=== PATIENT | female | born 1955 | race Caucasian/White ===

== ENCOUNTER 2017-04-25 21:53 | Emergency (ER) | payer MEDICAID ==
[~2017-04-25] VITALS: Ht 162.6 cm; Wt 71.5 kg
[~2017-04-25 21:53] MED LIST: AMIT10TA6 PO; BACDS PO; CHOL5000; CLIN150C2 PO; SERT20OR PO; ZOLP6.2523 PO
[2017-04-26] MEDS ORDERED: proparacaine 0.5% ophthalmic drops 15ml LEFTEYE ONE (00:45)
[2017-04-26] MEDS ORDERED: fluoroscein sod 10% (100mg/ml) 5ml vial IJ ONE (01:15)
[2017-04-26] MEDS ORDERED: benoxinate/fluorescein ophth drops 5ml bottle LEFTEYE ONE (01:20)
[2017-04-26 01:47] VITALS: BP 130/82
== END 2017-04-26 01:48 | disposition home or self-care (01) ==
LOC: ER 21:54
DX: H10.212 Acute toxic conjunctivitis, left eye (principal); Z56.0 Unemployment, unspecified; Z79.899 Other long term (current) drug therapy
CPT/HCPCS: 99283

== ENCOUNTER 2018-05-15 07:26 | Day surgery (SDC) | payer MEDICAID ==
[2018-05-15] VITALS (10 sets, daily range): BP systolic 114–137; BP diastolic 69–77
[~2018-05-15] VITALS: Ht 160 cm; Wt 75.7 kg
[~2018-05-15 07:26] MED LIST changes: -AMIT10TA6 PO; -BACDS PO; +CHOL100046 PO; -CHOL5000; -CLIN150C2 PO; +LEVO150T8 PO; +LORA-512 PO; -SERT20OR PO; -ZOLP6.2523 PO; +famotidine 20mg tablet PO ONE; +ringers solution, lacted 1,000 ML IV SCH
[2018-05-15] MEDS ORDERED: cefazolin/dext.iso 2gm/100 ML IV ONE (08:40)
[2018-05-15 08:53] LABS: BASOPHILS % (AUTO) 0.7 % (0-1); EOSINOPHILS # (AUTO) 0.2 X10'3 (0-0.9); EOSINOPHILS % (AUTO) 3.4 % (0-6); HEMATOCRIT 38.1 % (35.0-45.0); HEMOGLOBIN 12.9 g/dl (12.0-16.0); LYMPHOCYTES # (AUTO) 2.4 X10'3 (1.1-4.8); LYMPHOCYTES % (AUTO) 41.7 % (21-51); MEAN CORPUSCULAR HEMOGLOBIN 29.8 PG (27.0-31.0); MEAN CORPUSCULAR HGB CONC 33.9 g/dL (33.0-36.5); MEAN CORPUSCULAR VOLUME 87.8 FL (78-98); MEAN PLATELET VOLUME 9.2 FL (7.4-10.4); MONOCYTES # (AUTO) 0.7 X10'3 (0-0.9); MONOCYTES % (AUTO) 11.7 % (2-12); NEUTROPHILS # (AUTO) 2.4 X10'3 (1.8-7.7); NEUTROPHILS % (AUTO) 42.5 % (42-75); PLATELET COUNT 185 X10'3 (140-440); RED BLOOD COUNT 4.34 X10'6 (4.20-5.60); RED CELL DISTRIBUTION WIDTH 13.2 % (11.5-14.5); WHITE BLOOD COUNT 5.7 X10'3 (4.5-11.0)
[2018-05-15 09:06] LABS: ALANINE AMINOTRANSFERASE 28 U/L (12-78); ALBUMIN 3.8 G/DL (3.4-5.0); ALBUMIN/GLOBULIN RATIO 1.2 (1.1-1.5); ALKALINE PHOSPHATASE 78 IU/L (46-116); ANION GAP 8 (8-16); ASPARTATE AMINO TRANSFERASE 23 U/L (10-37); BILIRUBIN,TOTAL 0.4 MG/DL (0.1-1.0); BLOOD UREA NITROGEN 15 MG/DL (7-18); BUN/CREATININE RATIO 20.5 (6.6-38.0); CALCIUM 9.9 MG/DL (8.5-10.1); CHLORIDE 105 MMOL/L (99-107); CREATININE 0.73 MG/DL (0.40-0.90); GLUCOSE 109 MG/DL (70-104); SODIUM 141 MMOL/L (135-145); eGFR 81 ML/MIN
[2018-05-15 09:14] LABS: PRE OP PROTIME 10.1 SECONDS (9.0-12.0)
[2018-05-15] MEDS ORDERED: ceFAZolin 1000mg inj ONE (10:25)
[2018-05-15] MEDS ORDERED: BUPIVAcaine/PF 2.5mg/ml (0.25%) 10ml vial ONE (10:25)
[2018-05-15] MEDS ORDERED: fentaNYL/PF 50MCG/1 ML 2ML syringe ONE (10:39)
[2018-05-15] MEDS ORDERED: MIDAZolam 5mg/5ml vial ONE (10:39)
[2018-05-15] MEDS ORDERED: LIDOcaine 1% 30ml preserv. free vial ONE (10:57)
[2018-05-15] MEDS ORDERED: ringers solution, lacted 1,000 ML IV SCH (11:23)
[2018-05-15] MEDS ORDERED: proCHLORperazine 10 MG/2 ml inj IV PRN (11:25)
[2018-05-15] MEDS ORDERED: morphine 4 MG/ML inj SYRINge IV PRN ×2 (11:25)
[2018-05-15] MEDS ORDERED: ondansetron/PF 4mg/2ml inj IV PRN (11:25)
[2018-05-15] MEDS ORDERED: meperidine/PF 25mg/ml syringe IV PRN ×3 (11:25)
[2018-05-15] MEDS ORDERED: propofol inj 20 ML IV ONE (11:52)
--- NOTE | 2018-05-15 12:05 | NUR ---
Received from OR via BED, accompanied by Anesthesiologist ALBERTO and report given by Anesthesiolgist. PATIENT WAKING UP, DENIES PAIN, V/S WNL, CSM INTACT,RUE DRESSING CDI, 20G LUE, SCD ON.
[2018-05-15] MEDS ORDERED: acetaminophen 1,000mg/100ml IV 100 ML IV ONE (12:35)
--- NOTE | 2018-05-15 13:25 | NUR ---
PATIENT A&OX4, DENIES PAIN, V/S WNL, CSM INTACT,RUE DRESSING CDI, 20G LUE D/C, SCD OFF. ALL DC CRITERIA HAS BEEN MET. IV OUT WITHOUT ISSUE OR COMPLICATION. DENIES PAIN. FAMILY PRESENT FOR DC PAPERWORK. ALL QUESTIONS ANSWERED, FAMILY ASSISTED PATIENT IN GETTING DRESSED, OUT VIA WHEELCHAIR TO PERSONAL VEHICLE WHERE HE DROVE HER HOME. ALL DC CRITERIA HAS BEEN MET AND DRESSING IS CDI.
== END 2018-05-15 13:25 | disposition home or self-care (01) ==
LOC: PAS 07:26
PROVIDERS: ATTEND Surgery
DX: D17.21 Benign lipomatous neoplasm of skin and subcutaneous tissue of right arm (principal); E03.9 Hypothyroidism, unspecified; F31.9 Bipolar disorder, unspecified; F43.10 Post-traumatic stress disorder, unspecified; Z79.899 Other long term (current) drug therapy; Z72.89 Other problems related to lifestyle; F17.210 Nicotine dependence, cigarettes, uncomplicated
CPT/HCPCS: 11406; 12032; 36415; 80053; 82948; 85025; 85610; 85730; 93005; A6449; J0131; J0690; J2175; J2250; J2704; J3010; J3490; J7120; A6446; A7000

== ENCOUNTER 2018-06-07 02:45 | Emergency (ER) | payer MEDICAID ==
[~2018-06-07] VITALS: Ht 162.6 cm; Wt 75.0 kg
[~2018-06-07 02:45] MED LIST changes: -famotidine 20mg tablet PO ONE; -ringers solution, lacted 1,000 ML IV SCH
[2018-06-07 02:50] VITALS: BP 147/87
[2018-06-07] MEDS ORDERED: BACDS PO (03:01)
[2018-06-07] MEDS ORDERED: sulfamethoxazole/trimethoprim DS (800/160mg) tablet PO ONE (03:05)
== END 2018-06-07 03:13 | disposition home or self-care (01) ==
LOC: ER 02:46
DX: L76.82 Other postprocedural complications of skin and subcutaneous tissue (principal); L03.113 Cellulitis of right upper limb; F17.210 Nicotine dependence, cigarettes, uncomplicated; Z56.0 Unemployment, unspecified; Z79.899 Other long term (current) drug therapy
CPT/HCPCS: 99283